=== PATIENT | male | born 1995 | race Caucasian/White ===

== ENCOUNTER 2020-01-18 11:15 | Emergency (ER) | payer SELFPAY ==
[~2020-01-18] VITALS: Ht 185.4 cm; Wt 40.9 kg
[2020-01-18 11:36] VITALS: BP 122/80
[2020-01-18] MEDS ORDERED: LACT1CAP65 PO (12:49)
[2020-01-18] MEDS ORDERED: PENI500T2 PO (12:49)
== END 2020-01-18 13:51 | disposition home or self-care (01) ==
LOC: ER 11:15
DX: J02.8 Acute pharyngitis due to other specified organisms (principal); Z72.89 Other problems related to lifestyle; Z60.2 Problems related to living alone; Z79.899 Other long term (current) drug therapy
CPT/HCPCS: 87880; 99283

== ENCOUNTER 2020-12-24 11:33 | Emergency (ER) | payer OTHER ==
[~2020-12-24] VITALS: Ht 185.4 cm; Wt 100.0 kg
[~2020-12-24 11:33] MED LIST: LACT1CAP65 PO
[2020-12-24 11:48] VITALS: BP 154/101
[2020-12-24] MEDS ORDERED: IBUP-1984 PO (13:23)
[2020-12-24] MEDS ORDERED: PENI500T2 PO (13:23)
== END 2020-12-24 13:33 | disposition home or self-care (01) ==
LOC: ER 11:34
DX: K08.89 Other specified disorders of teeth and supporting structures (principal)
CPT/HCPCS: 99283